=== PATIENT | male | born 1950 | race Caucasian/White ===

== ENCOUNTER 2024-08-25 11:33 | Emergency (ER) | payer MEDICARE ==
[2024-08-25] MEDS ORDERED: Boostrix 0.5 ML (Tdap) VIAL (>/=7 yrs of age) ONE (12:12)
== END 2024-08-25 12:35 | disposition home or self-care (01) ==
LOC: MADERS 11:33
DX: S60.413A Abrasion of left middle finger, initial encounter (principal); L03.012 Cellulitis of left finger; I10 Essential (primary) hypertension; F17.220 Nicotine dependence, chewing tobacco, uncomplicated; W26.8XXA Contact with other sharp object(s), not elsewhere classified, initial encounter; Z79.899 Other long term (current) drug therapy
CPT/HCPCS: 90471; 90715